=== PATIENT | male | born 1945 | race Caucasian/White ===

== ENCOUNTER 2021-05-19 05:34 | Day surgery (SDC) | payer MEDICARE | END 2021-05-19 23:30 | disposition home or self-care (01) | LOC: WOUND 05:34 | DX: T81.33XD Disruption of traumatic injury wound repair, subsequent encounter (principal); Y83.8 Other surgical procedures as the cause of abnormal reaction of the patient, or of later complication, without mention of misadventure at the time of the procedure; I10 Essential (primary) hypertension | CPT/HCPCS: A9270; G0463 ==

== ENCOUNTER 2021-05-26 02:25 | Day surgery (SDC) | payer MEDICARE | END 2021-05-26 22:45 | disposition home or self-care (01) | LOC: WOUND 02:25 | DX: T81.33XA Disruption of traumatic injury wound repair, initial encounter (principal); I10 Essential (primary) hypertension; Y83.8 Other surgical procedures as the cause of abnormal reaction of the patient, or of later complication, without mention of misadventure at the time of the procedure | CPT/HCPCS: A9270 ==

== ENCOUNTER 2021-06-02 01:31 | Day surgery (SDC) | payer MEDICARE | END 2021-06-02 23:39 | disposition home or self-care (01) | LOC: WOUND 01:31 | DX: T81.33XA Disruption of traumatic injury wound repair, initial encounter (principal); Y83.8 Other surgical procedures as the cause of abnormal reaction of the patient, or of later complication, without mention of misadventure at the time of the procedure | CPT/HCPCS: A9270; G0463 ==

== ENCOUNTER 2021-06-09 02:20 | Day surgery (SDC) | payer MEDICARE | END 2021-06-09 23:31 | disposition home or self-care (01) | LOC: WOUND 02:20 | DX: T81.33XA Disruption of traumatic injury wound repair, initial encounter (principal); Y83.4 Other reconstructive surgery as the cause of abnormal reaction of the patient, or of later complication, without mention of misadventure at the time of the procedure | CPT/HCPCS: A9270 ==

== ENCOUNTER 2021-06-16 01:08 | Day surgery (SDC) | payer MEDICARE | END 2021-06-16 23:56 | disposition home or self-care (01) | LOC: WOUND 01:08 | DX: T81.33XA Disruption of traumatic injury wound repair, initial encounter (principal); Y83.8 Other surgical procedures as the cause of abnormal reaction of the patient, or of later complication, without mention of misadventure at the time of the procedure | CPT/HCPCS: A9270 ==

== ENCOUNTER 2021-06-23 08:00 | Day surgery (SDC) | payer MEDICARE | END 2021-06-23 23:59 | disposition home or self-care (01) | LOC: WOUND 08:00 | DX: T81.31XA Disruption of external operation (surgical) wound, not elsewhere classified, initial encounter (principal); Y83.8 Other surgical procedures as the cause of abnormal reaction of the patient, or of later complication, without mention of misadventure at the time of the procedure; I10 Essential (primary) hypertension | CPT/HCPCS: G0463 ==

== ENCOUNTER 2021-07-02 03:07 | Day surgery (SDC) | payer MEDICARE | END 2021-07-02 23:15 | disposition home or self-care (01) | LOC: WOUND 03:07 | DX: T81.33XD Disruption of traumatic injury wound repair, subsequent encounter (principal); I10 Essential (primary) hypertension | CPT/HCPCS: A9270; G0463 ==

== ENCOUNTER 2021-07-16 00:38 | Day surgery (SDC) | payer MEDICARE | END 2021-07-16 22:52 | disposition home or self-care (01) | LOC: WOUND 00:38 | DX: T81.30XD Disruption of wound, unspecified, subsequent encounter (principal); I10 Essential (primary) hypertension | CPT/HCPCS: A9270; G0463 ==